=== PATIENT | female | born 2000 | race Hispanic/Latino ===

== ENCOUNTER 2022-04-02 23:43 | Emergency (ER) | payer MEDICAID ==
[~2022-04-02] VITALS: Ht 167.6 cm; Wt 97.1 kg
[2022-04-03 00:43] LABS: BASOPHILS % (AUTO) 0.4 % (0.0-5.0); EOSINOPHILS % (AUTO) 3.9 % (0.0-8.0); HEMATOCRIT 38.7 % (36-48); LYMPHOCYTES % (AUTO) 27.6 % (21.0-51.0); MEAN CORPUSCULAR HEMOGLOBIN 29.3 pg (27.0-33.0); MEAN CORPUSCULAR HGB CONC 32.8 g/dL (32.0-36.0); MEAN CORPUSCULAR VOLUME 89.4 fL (79-99); MONOCYTES % (AUTO) 6.9 % (3.0-13.0); NEUTROPHILS % (AUTO) 61.1 % (40.0-77.0); PLATELET COUNT (AUTO) 303 K/uL (130-400); RED BLOOD CELL COUNT(AUTO) 4.33 MIL/uL (4.00-5.50); RED CELL DISTRIBUTION WIDTH 12.5 % (11.0-15.5); WHITE BLOOD COUNT (AUTO) 8.4 K/uL (4.8-10.8)
[2022-04-03 00:46] LABS: APPEARANCE,URINE Clear (CLEAR); BILIRUBIN,URINE Negative (NEGATIVE); COLOR,URINE Yellow (YELLOW); GLUCOSE, URINE (UA) Negative (NEGATIVE); KETONES,URINE Negative (NEGATIVE); LEUKOCYTE ESTERASE ,URINE Trace (NEGATIVE); NITRATE,URINE Negative (NEGATIVE); OCCULT BLOOD,URINE Large (NEGATIVE); PH,URINE 5.5 (5.0-8.0); PROTEIN,URINE Negative (NEGATIVE); UROBILINOGEN,URINE 0.2 mg/dL (0.2-1.0)
[2022-04-03 00:47] LABS: HCG,QUAL RESULT NEGATIVE (NEGATIVE)
[2022-04-03 00:53] LABS: BACTERIA,URINE None Seen /HPF (None Seen); WBC,URINE 0-1 /HPF (0-1)
[2022-04-03 00:54] LABS: CREATININE 0.6 mg/dL (0.5-1.5)
[2022-04-03 00:59] LABS: ALBUMIN 3.9 g/dL (3.5-5.0); BILIRUBIN,TOTAL 0.2 mg/dL (0.2-1.0); TOTAL PROTEIN, SERUM 7.9 g/dL (6.0-8.3)
[2022-04-03] MEDS ORDERED: ONDANSETRON 4MG INJ IVP ONE (01:00)
[2022-04-03] MEDS ORDERED: 0.9%NACL 1000ML 1,000 ML IV ONE (01:00)
[2022-04-03] MEDS ORDERED: IOHEXOL 350 MG/ML 100ML INFUS..BTL IV ONE (01:36)
[2022-04-03] MEDS ORDERED: ONDA4TAB10 PO (03:33)
[2022-04-03 03:35] VITALS: BP 118/67
== END 2022-04-03 03:37 | disposition home or self-care (01) ==
LOC: EDH 23:43
DX: R11.10 Vomiting, unspecified (principal); R19.7 Diarrhea, unspecified; E86.9 Volume depletion, unspecified
CPT/HCPCS: 36415; 74177; 80053; 81001; 81025; 83690; 85025; 96361; 96374; 99285; J2405; J7030; Q9967

== ENCOUNTER 2022-08-16 18:51 | Emergency (ER) | payer MEDICAID ==
[~2022-08-16] VITALS: Ht 167.6 cm; Wt 86.2 kg
[~2022-08-16 18:51] MED LIST: ONDA4TAB10 PO
[2022-08-16] MEDS ORDERED: ACETAMINOPHEN 500 MG TABLET PO ONE (19:30)
[2022-08-16] MEDS ORDERED: ALBUTEROL 0.042% 1.25MG/3ML IH ONE (19:30)
[2022-08-16] MEDS ORDERED: IPRATROPIUM/ALBUTEROL SULFATE 3 ML SOLUTION IH ONE (19:30)
[2022-08-16] MEDS ORDERED: IBUPROFEN 800 MG TAB PO ONE (19:30)
[2022-08-16] MEDS ORDERED: GUAIFENESIN-CODEINE 5 ML SYRUP PO ONE (19:30)
[2022-08-16] MEDS ORDERED: BUDESONIDE 0.5 MG/2 ML INH IH SCH (19:30)
[2022-08-16] MEDS ORDERED: 0.9%NACL 1000ML 1,000 ML IV SCH (19:30)
[2022-08-16 19:56] LABS: BASOPHILS % (AUTO) 0.2 % (0.0-5.0); EOSINOPHILS % (AUTO) 1.1 % (0.0-8.0); HEMATOCRIT 38.8 % (36-48); LYMPHOCYTES % (AUTO) 12.3 % (21.0-51.0); MEAN CORPUSCULAR HEMOGLOBIN 29.2 pg (27.0-33.0); MEAN CORPUSCULAR HGB CONC 33.8 g/dL (32.0-36.0); MEAN CORPUSCULAR VOLUME 86.4 fL (79-99); MONOCYTES % (AUTO) 9.6 % (3.0-13.0); NEUTROPHILS % (AUTO) 76.6 % (40.0-77.0); PLATELET COUNT (AUTO) 272 K/uL (130-400); RED BLOOD CELL COUNT(AUTO) 4.49 MIL/uL (4.00-5.50); RED CELL DISTRIBUTION WIDTH 12.8 % (11.0-15.5); WHITE BLOOD COUNT (AUTO) 9.5 K/uL (4.8-10.8)
[2022-08-16] MEDS ORDERED: OSELTAMIVIR PHOSPHATE 75 MG CAP PO SCH (20:00)
[2022-08-16 20:03] LABS: CREATININE 0.8 mg/dL (0.5-1.5); POTASSIUM 3.9 mmol/L (3.5-5.1)
[2022-08-16 20:07] LABS: HCG,QUALITATIVE URINE NEGATIVE (NEGATIVE)
[2022-08-16 20:08] LABS: ALBUMIN 3.8 g/dL (3.5-5.0); CRP QUANTITATIVE 46.8 mg/L (0.00-9.0); TOTAL PROTEIN, SERUM 8.1 g/dL (6.0-8.3)
[2022-08-16 20:38] LABS: APPEARANCE,URINE CLEAR (CLEAR); BILIRUBIN,URINE NEGATIVE (NEGATIVE); COLOR,URINE YELLOW (YELLOW); GLUCOSE, URINE (UA) NEGATIVE (NEGATIVE); KETONES,URINE NEGATIVE (NEGATIVE); LEUKOCYTE ESTERASE ,URINE TRACE Leu/uL (NEGATIVE); NITRATE,URINE NEGATIVE (NEGATIVE); OCCULT BLOOD,URINE NEGATIVE (NEGATIVE); PROTEIN,URINE NEGATIVE (NEGATIVE); UROBILINOGEN,URINE 0.2 mg/dL (0.2-1.0)
[2022-08-16 20:45] LABS: BACTERIA,URINE Few /HPF (None Seen); RBC,URINE 0-1 /HPF (0-1); SQUAMOUS EPITHELIAL CELL,UR Few /HPF (0-2)
[2022-08-16 20:46] LABS: MUCUS,URINE Rare LPF (None Seen)
[2022-08-16] MEDS ORDERED: IBUP-1556 PO (21:12)
[2022-08-16] MEDS ORDERED: AMOX1TAB16 PO (21:12)
[2022-08-16] MEDS ORDERED: D-ME1POW16 PO (21:12)
[2022-08-16] MEDS ORDERED: OSEL75 PO (21:13)
[2022-08-16 21:22] VITALS: BP 121/58
== END 2022-08-16 21:25 | disposition home or self-care (01) ==
LOC: EDH 18:51
DX: J10.1 Influenza due to other identified influenza virus with other respiratory manifestations (principal); J40 Bronchitis, not specified as acute or chronic; E86.0 Dehydration; R50.9 Fever, unspecified; Z20.822 Contact with and (suspected) exposure to COVID-19
CPT/HCPCS: 99284; 96360; 71045; 87635; 80053; 85025; 87880; 87804 ×2; 86140; 81001; 81025; 36415; 94640 ×2; C9803; J7030

== ENCOUNTER 2022-09-01 15:38 | Emergency (ER) | payer MEDICAID ==
[~2022-09-01] VITALS: Ht 167.6 cm; Wt 81.6 kg
[~2022-09-01 15:38] MED LIST changes: +AMOX1TAB16 PO; +D-ME1POW16 PO; +IBUP-1556 PO; +OSEL75 PO
[2022-09-01 15:43] VITALS: BP 105/69
[2022-09-01] MEDS ORDERED: ACETAMINOPHEN 500 MG TABLET PO ONE (16:00)
[2022-09-01] MEDS ORDERED: GUAIFENESIN-DM 200/20 MG 10 ML PO ONE (16:00)
[2022-09-01] MEDS ORDERED: IBUPROFEN 800 MG TAB PO ONE (16:00)
[2022-09-01] MEDS ORDERED: IBUP-2071 PO (17:15)
[2022-09-01] MEDS ORDERED: D-ME1POW16 PO (17:15)
== END 2022-09-01 17:28 | disposition home or self-care (01) ==
LOC: EDH 15:38
DX: J06.9 Acute upper respiratory infection, unspecified (principal); Z20.822 Contact with and (suspected) exposure to COVID-19; Z79.899 Other long term (current) drug therapy
CPT/HCPCS: 99284; 87635; 87880; 87804 ×2; C9803

== ENCOUNTER 2023-01-20 13:43 | Emergency (ER) | payer MEDICAID ==
[~2023-01-20] VITALS: Ht 167.6 cm; Wt 81.6 kg
[~2023-01-20 13:43] MED LIST changes: +IBUP-2071 PO
[2023-01-20 13:44] VITALS: BP 134/71
[2023-01-20] MEDS ORDERED: AMOX500C2 PO (14:20)
== END 2023-01-20 14:42 | disposition home or self-care (01) ==
LOC: EDH 13:43
DX: H66.91 Otitis media, unspecified, right ear (principal); Z79.2 Long term (current) use of antibiotics; Z79.1 Long term (current) use of non-steroidal anti-inflammatories (NSAID); Z79.899 Other long term (current) drug therapy

== ENCOUNTER 2023-08-20 12:38 | Emergency (ER) | payer MEDICAID, OTHER ==
[~2023-08-20] VITALS: Ht 167.6 cm; Wt 95.3 kg
[~2023-08-20 12:38] MED LIST changes: +AMOX500C2 PO
[2023-08-20 13:09] VITALS: BP 113/70; PULSE 62; RESP 18; O2SAT 98
== END 2023-08-20 17:43 | disposition left against medical advice (07) ==
LOC: EDH 12:38
DX: H92.01 Otalgia, right ear (principal)

== ENCOUNTER 2023-12-07 15:36 | Emergency (ER) | payer MEDICAID, OTHER ==
[~2023-12-07] VITALS: Ht 167.6 cm; Wt 99.8 kg
[2023-12-07 15:44] VITALS: BP 130/75; PULSE 91; RESP 18
[2023-12-07 16:20] LABS: RAPID GROUP A STREP negative (NEGATIVE)
[2023-12-07 16:30] LABS: COVID19 (SARS ANTIGEN RAPID) PRESUMPTIVE NEGATIVE (NEGATIVE); INFLUENZA TYPE A Negative For Type A (NEGATIVE); INFLUENZA TYPE B Negative For Type B (NEGATIVE)
[2023-12-07] MEDS ORDERED: ACETAMINOPHEN 500 MG TABLET PO ONE (16:30)
[2023-12-07] MEDS ORDERED: ALBUHFA IH (16:44)
[2023-12-07] MEDS ORDERED: BENZ-39 PO (16:44)
== END 2023-12-07 16:52 | disposition home or self-care (01) ==
LOC: EDH 15:36
DX: J06.9 Acute upper respiratory infection, unspecified (principal); Z20.822 Contact with and (suspected) exposure to COVID-19; Z79.899 Other long term (current) drug therapy; Z98.890 Other specified postprocedural states
CPT/HCPCS: 87426; 87804; 87880